=== PATIENT | female | born 1990 | race Caucasian/White ===

== ENCOUNTER → 2024-02-20 08:20 | Outpatient (CLI) | payer OTHER, SELFPAY ==
--- NOTE | 2024-02-20 | DI.RAD.S_ITS ---
PROCEDURE: FL WRIST INJECTION MR/CT RT INDICATIONS: tear of triangular fibrocartilage complex COMPARISON: None. TECHNIQUE: After informed consent had been obtained, the wrist was examined fluoroscopically, and a site chosen for injection of the radiocarpal compartment from a dorsal approach. Skin was prepped and draped in a sterile fashion and 1% lidocaine infiltrated from the skin down to the articular surface. A hypodermic needle was then introduced into the articular space and a modest amount of contrast medium was instilled confirming intra-articular needle tip placement. This was followed by approximately 4 mL of a dilute gadolinium solution. Needle was removed and dressing was applied. The patient experienced no complications throughout the procedure and left the fluoroscopic suite in no apparent distress. FINDINGS: A single fluoroscopic spot image demonstrates intra-articular location to injected iodinated contrast. IMPRESSION: Successful fluoroscopic-guided administration of dilute Gadolinium solution for right wrist MR arthrogram. Dictated by: Mehrdad JOYA Interpreted: Ugo Day MD on 02/20/2024 at 11:28 Transcribed by: MIKE on 02/20/2024 at 11:28 Approved by: Ugo Day M.D. on 02/20/2024 at 20:23
--- NOTE | 2024-02-20 | DI.MRI.S_ITS ---
PROCEDURE: MR WRIST RT W CON INDICATIONS: tear of triangular fibrocartilage complex TECHNIQUE: After the administration of 3-4 mL of dilute intra-articular Gadolinium contrast into the radiocarpal compartment, coronal T1 spin echo with fat saturation and T2 fast spin echo with fat saturation, axial T1 spin echo and T2 fast spin echo with fat saturation, sagittal T1 spin echo with and without fat saturation through the wrist. COMPARISON: [facility], CR, XR WRIST 3+ VIEWS RIGHT, 10/09/2023, 14:42. [facility], RF, [place] WRIST INJECTION MR/CT RT, 02/20/2024, 8:44. FINDINGS: Image quality: Excellent. Bones and cartilage: The carpal bones are normally aligned. No bone marrow contusions or fractures. No evidence for avascular necrosis. Overlying cartilage surfaces appear normal. Carpal ligaments: The scapholunate and lunotriquetral ligaments appear intact, without gadolinium extravasation into the mid-carpal compartment. The radioscaphocapitate and radiolunotriquetral ligaments appear intact. The arcuate ligament and short radiolunate ligament also appear normal. The dorsal intercarpal and radiotriquetral ligaments appear intact. On sagittal images, the pisohamate ligament appears intact. Triangular fibrocartilage complex: The triangular fibrocartilage disc, with its styloid and foveal lamina, appears intact. No gadolinium extravasation into the distal radioulnar joint. The adjacent meniscal homolog appears normal. The ulnar collateral ligament appears intact. The extensor carpi ulnaris tendon is normal in location and morphology. Tendons and soft tissues: The flexor tendons unremarkable. Edema of the median nerve, raising concern for carpal tunnel syndrome. The ulnar nerve appears normal within Guyon's canal. All six extensor tendon compartments demonstrate normal morphology, without pathologic tendon sheath fluid. No soft tissue ganglion cysts. IMPRESSION: 1. Intact triangular fibrocartilage complex. 2. Findings suggestive of carpal tunnel syndrome. Dictated by: Meri Schwartz M.D. on 02/20/2024 at 14:32 Approved by: Meri Schwartz M.D. on 02/20/2024 at 14:37
[2024-02-20] MEDS: LIDOCAINE 1% 20 ML INJ (08:58)
[2024-02-20] MEDS: SODIUM CHLORIDE 0.9 % 20 ML VIAL IV (08:58)
== END ==
LOC: RAD 08:22
PROVIDERS: PCP Family Medicine; Referring Provider Orthopaedic Surgery; Visit Provider Orthopaedic Surgery
DX: S63.591A Other specified sprain of right wrist, initial encounter (principal); X58.XXXA Exposure to other specified factors, initial encounter
CPT/HCPCS: 25246; 73115; 73222; A9579

== ENCOUNTER → 2024-06-21 08:58 | Outpatient (CLI) | payer OTHER, SELFPAY ==
--- NOTE | 2024-06-21 09:01 | DI.RAD.S_ITS ---
PROCEDURE: FL ARTHROGRAM WRIST RT INDICATIONS: SPRAIN RT WRIST/SPRAIN INTERPHALANGEAL JOINT COMPARISON: [facility], , MR WRIST RT W CON, 06/21/2024, 9:21. TECHNIQUE: After informed consent had been obtained, the wrist was examined fluoroscopically, and a site chosen for injection of the radiocarpal compartment from a dorsal approach. Skin was prepped and draped in a sterile fashion and 1% lidocaine infiltrated from the skin down to the articular surface. A hypodermic needle was then introduced into the articular space and a modest amount of contrast medium was instilled confirming intra-articular needle tip placement. This was followed by approximately 4 mL of a dilute gadolinium solution. Needle was removed and dressing was applied. The patient experienced no complications throughout the procedure and left the fluoroscopic suite in no apparent distress. FINDINGS: A single fluoroscopic spot image demonstrates intra-articular location to injected iodinated contrast. IMPRESSION: Successful fluoroscopic-guided administration of dilute Gadolinium solution for wrist MR arthrogram. Dictated by: Sarah Barcenas M.D. on 06/21/2024 at 15:39 Approved by: Sarah Barcenas M.D. on 06/21/2024 at 15:39
--- NOTE | 2024-06-21 09:02 | DI.MRI.S_ITS ---
PROCEDURE: MR WRIST RT W CON INDICATIONS: SPRAIN RT WRIST/SPRAIN INTERPHALANGEAL JOINT TECHNIQUE: After the administration of 3-4 mL of dilute intra-articular Gadolinium contrast into the radiocarpal compartment, coronal T1 spin echo with fat saturation and T2 fast spin echo with fat saturation, axial T1 spin echo and T2 fast spin echo with fat saturation, sagittal T1 spin echo with and without fat saturation through the wrist. COMPARISON: [facility], [place], [place] ARTHROGRAM WRIST RT, 06/21/2024, 8:23. [facility], MR, MR WRIST RT W CON, 02/20/2024, 9:04. FINDINGS: Image quality: Excellent. Bones and cartilage: The carpal bones are normally aligned. No bone marrow contusions or fractures. No evidence for avascular necrosis. Overlying cartilage surfaces appear normal. Carpal ligaments: There is focal full-thickness tear of the scapholunate ligament (4:9). There is contrast extravasating into the intercarpal joint. No widening of the scapholunate interval. The lunotriquetral ligament is intact. Triangular fibrocartilage complex: The triangular fibrocartilage disc, with its styloid and foveal lamina, appears intact. No gadolinium extravasation into the distal radioulnar joint. The adjacent meniscal homolog appears normal. The ulnar collateral ligament appears intact. Tendons and soft tissues: The carpal tunnel structures appear normal, including the median nerve. The ulnar nerve appears normal within Guyon's canal. Mild ulnar subluxation of the extensor carpi ulnaris within the ulnar groove. No soft tissue ganglion cysts. IMPRESSION: 1. Focal full-thickness tear of the scapholunate ligament, without widening of the scapholunate interval. 2. Intact triangular fibrocartilage. 3. Mild ulnar subluxation of the extensor carpi ulnaris within the ulnar groove. Dictated by: Meri Schwartz M.D. on 06/21/2024 at 15:23 Approved by: Meri Schwartz M.D. on 06/21/2024 at 15:36
--- NOTE | 2024-06-21 09:02 | DI.MRI.S_ITS ---
PROCEDURE: MR HAND LT WO CON INDICATIONS: SPRAIN lt WRIST/SPRAIN INTERPHALANGEAL JOINT TECHNIQUE: Noncontrast coronal T1 spin echo and T2 fast spin echo with fat saturation, axial proton density fast spin echo and T2 fast spin echo with fat saturation, sagittal T1 spin echo and STIR through the hand and fingers. COMPARISON: None. FINDINGS: Image quality: Limited evaluation given extensive patient motion. Bones: Diffuse marrow edema the 2nd middle phalanx, with relative sparing of the middle phalangeal head, without fracture line, likely representing marrow contusion. Interphalangeal joint(s): The accessory and proper collateral ligaments appear intact. The volar plate demonstrates normal morphology. The extensor central slips appear intact on sagittal images. Metacarpophalangeal joint(s): The accessory and proper collateral ligaments appear intact, as well as the volar plate and adjacent deep transverse metacarpal ligaments. The sagittal bands of the extensor padilla appear normal. Extensor apparatus: The central slips insert normally on the middle phalangeal base. The conjoint and terminal tendons insert normally on the distal phalangeal bases. More proximal portions of the extensor tendons also appear normal. Flexor apparatus: The flexor digitorum superficialis and profundus tendons both appear intact. All annular and cruciform pulleys appear intact, without adjacent soft tissue edema. Soft tissues: Visualized muscles demonstrate normal bulk and internal signal. No intramuscular masses identified. No ganglion cysts. IMPRESSION: Marrow contusion of the 2nd middle phalanx, without fracture line. Dictated by: Meri Schwartz M.D. on 06/21/2024 at 15:36 Approved by: Meri Schwartz M.D. on 06/21/2024 at 15:43
== END ==
PROVIDERS: Referring Provider Orthopaedic Surgery; Visit Provider Orthopaedic Surgery
DX: S60.022A Contusion of left index finger without damage to nail, initial encounter (principal); S63.639A Sprain of interphalangeal joint of unspecified finger, initial encounter; S63.591D Other specified sprain of right wrist, subsequent encounter
CPT/HCPCS: 25246; 73115; 73218; 73222